=== PATIENT | female | born 1995 | race Caucasian/White ===

== ENCOUNTER 2019-08-03 08:24 | Emergency (ER) | payer OTHER, SELFPAY ==
[2019-08-03 08:35] VITALS: BP 135/96; PULSE 89; RESP 16; TEMP 36.9; O2SAT 99; BMI 23.4
--- NOTE | 2019-08-03 08:37 | ED_ITS ---
HPI - Female Genitourinary General Chief complaint: Urogenital-Female Stated complaint: vaginal itching/frequency/urgency/irr discharge x2 Time Seen by Provider: 08/03/19 08:30 Source: patient Mode of arrival: Ambulatory Limitations: no limitations History of Present Illness HPI Narrative: This is a 23-year-old female who comes to the emergency department with complaint of low bit of frequency and dysuria but also vaginal itching and irritation. Patient states she has had a little bit of discharge it has been white insert sick. Patient states she has not had fevers, no nausea, no vomiting, no abdominal or flank pain. She states she recently finished her. She is not having any bleeding currently. The discharge is different from her normal which is usually clear or translucent. Patient is , she states that her recently had an infection and that he was treated with antibiotics. She believes that he had 2 antibiotics at the facility or location that he was treated at and is not currently on anything otherwise. She does not know what kind of infection he had. Patient states she has had similar symptoms once before but does not recall the cause. Patient denies any other medical i ssues. Denies any allergies to medications. Related Data Previous Rx's Medication Instructions Recorded metronidazole 500 mg PO BID #14 tab 08/03/19 Allergies Allergy/AdvReac Type Severity Reaction Status Date / Time gluten AdvReac Verified 08/03/19 08:41 Review of Systems Review of Systems ROS Unobtainable: All systems reviewed & are unremarkable except as noted in HPI and below Gastrointestinal Gastrointestinal: Denies abdominal pain, Denies change in bowel habits, Denies diarrhea, Denies nausea and Denies vomiting Genitourinary Genitourinary: Reports as per HPI, Denies abnormal menses, Denies abnormal vaginal bleeding, Reports urinary frequency, Denies genital lesions, Reports dysuria, Denies pelvic pain, Denies flank pain, Denies urinary incontinence, De nies urinary hesitancy, Reports urinary urgency, Reports vaginal discharge, Denies vaginal dryness and Reports vaginal pruritus Patient History marital status: Exam Narrative Exam Narrative: GENERAL: Alert and oriented x three, well-nourished, well- appearing female in mild distress. HEENT: Head normocephalic, atraumatic, EOMI, pupils reactive, face symmetric, moist mucous membranes NECK: Supple, full range of motion ABDOMEN: Soft, nontender. Normoactive bowel sounds all 4 quadrants. No guarding or rebound, rigidity, no mass : No CVA tenderness. Female: external vaginal exam is normal, no vaginal bleeding, positive for thick yellow white discharge, no cervical motion tenderness, normal speculum exam, no adnexal tenderness/mass. Bimanual exam is normal, no enlarged or tender uterus. Non-gravid. EXTREMITIES: Normal range of motion, no clubbing or edema. Neurovascularly intact NEUROLOGICAL: Cranial nerves II through XII grossly intact. Moving all extremities SKIN: Warm, dry, no petechiae, no rashes or lesions. Initial Vital Signs Initial Vital Signs: Vital Signs Temperature 98.4 F 08/03/19 08:35 Pulse Rate 89 08/03/19 08:35 Respiratory Rate 16 08/03/19 08:35 Blood Pressure 135/96 H 08/03/19 08:35 Pulse Oximetry 99 08/03/19 08:35 Course Orders Ordered: ED Orders 08/03/19 08:35 Urine Chlamydia Gonorrhea PCR Stat 08/03/19 08:48 Genital Culture Stat Wet Prep Tric BV Denise Stat Discontinued Medications Azithromycin (Zithromax) 1,000 mg PO NOW ONE Stop: 08/03/19 08:56 Last Admin: 08/03/19 09:02 Dose: 1,000 mg Documented by: MARIA TERESA Ceftriaxone Sodium (Rocephin) 250 mg IM NOW ONE Stop: 08/03/19 08:56 Last Admin: 08/03/19 09:29 Dose: 250 mg Documented by: MARIA TERESA Vital Signs Vital signs: Vital Signs - 8 hr 08/03/19 08:35 08/03/19 09:30 Temperature 98.4 F Pulse Rate 89 77 Respiratory Rate 16 16 Blood Pressure 135/96 H 110/78 Pulse Oximetry 99 98 MDM - Female Genitourinary Lab Data Attestation: I reviewed the patient's lab results. Labs: Lab Results 08/03/19 Range/Units 08:35 Ur Chlamydia DNA (PCR) Not detected N gonorrhoeae DNA (PCR) Not detected Point of Care Testing Test Results Negative Urine Dip Bedside Urine Glucose Negative Bedside Urine Bilirubin - Negative Bedside Urine Ketone - Negative Urine Specific [place] 1.025 Bedside Urine Occult Blood - Negative Bedside Urine pH 5.5 Bedside Urine Protein +/- 15 Bedside Urine Urobilinogen - Negative Bedside Urine Nitrite - Negative Bedside Urine Leukocytes ++ 125 Esterase MDM Narrative Medical decision making narrative: Patient comes to the department, she does have discharged could be bacterial vaginosis but her was also recently treated for STDs. She did not wish to wait for STD testing which takes about an hour and, discussed going ahead and treating her prophylactically and putting her on Flagyl daily. Patient is comfortable with this plan and comfortable being contacted by phone with any results that are positive from today. Genital and urine culture is pending. wet prep shows moderate wbc's, no clue, yeast or trich. Discharge Plan Departure Patient Disposition: Home Clinical Impression: Vaginosis Discharge Date/Time: 08/03/19 09:30 Instructions: DI for Bacterial Vaginosis Activity Restrictions/Additional Instructions: I suspect you have bacterial vaginosis, your other tests are pending and if positive you should expect to receive a phone call. Your genital culture and urine culture will take 24-48 hours to result and if positive and you are not covered with the appropriate antibiotics you will receive a phone call. No sexual activity until you have completed your antibiotics and confirmed treat ment of your infection. Follow up with primary care in the next week for recheck to make sure your symptoms completely resolved. Take antibiotics until they are completely gone. Do not drink alcohol while taking this antibiotic as it will make you vomit. Return to the emergency department for fevers greater 100.4 F, persistent vomiting, new abdominal or flank pain, worsening vaginal discomfort, lightheadedness, passing out or other new or concerning symptoms. Prescriptions: New metronidazole 500 mg tablet 500 mg PO BID Qty: 14 RF: 0 Referrals: Brenda Love MD [Primary Care Provider] -
[2019-08-03] MEDS: AZITHROMYCIN 250 MG TABLET 1000 MG PO (09:02)
[2019-08-03] MEDS: cefTRIAXone 500 MG VIAL 250 MG IM (09:29)
[2019-08-03 09:30] VITALS: BP 110/78; PULSE 77; RESP 16; O2SAT 98
[2019-08-03 10:12] LABS: Urine N gonorrhoeae NOT DETECTED
[2019-08-03 10:15] LABS: Urine Chlamydia NOT DETECTED
== END 2019-08-03 09:30 | disposition home or self-care (01) ==
LOC: ED 09:34
PROVIDERS: Emergency Provider Emergency Medicine; PCP Family Medicine
DX: N76.0 Acute vaginitis (principal)
CPT/HCPCS: 81003; 81025; 87070; 87077; 87205; 87210; 87491; 87591; 96372; 99283; J0696